=== PATIENT | male | born 1965 | race Caucasian/White ===

== ENCOUNTER 2017-10-18 15:45 | Emergency (ER) | payer BC ==
[2017-10-18 16:21] LABS: #Basophils 0.1 thou/uL (0.0-0.2); #Eosinphils 0.1 thou/uL (0.0-0.7); #Monocytes 0.8 thou/uL (0.11-0.59); #Neutrophils 3.5 thou/uL (1.40-6.50); %Basophils 1.8 % (0.0-1.0); %Eosinophils 2.1 % (0.0-10.0); %Lymphocytes 18.6 % (21.0-51.0); %Monocytes 13.7 % (0.0-10.0); %Neutrophils 63.9 % (42.0-75.0); Hemoglobin 9.5 g/dL (14.0-18.0); Mean Corpuscular HGB CONC 31.7 g/dL (32.0-36.0); Mean Corpuscular Hemoglobin 26.4 pg (27.0-31.0); Mean Corpuscular Volume 83.3 fl (80.0-94.0); Mean Platelet Volume 6.5 fL (7.4-10.4); Platelet Count 170 thou/uL (130-400); RBC Distribution Width 15.4 % (11.5-14.5); White Blood Cell (WBC) Count 5.5 thou/uL (4.8-10.8)
[2017-10-18 16:28] LABS: Bilirubin Negative (Negative); Blood, Urine Negative (Negative); Clarity Clear (Clear); Glucose, Urine (Dipstick) Negative (Negative); Leukocyte Negative (Negative); Nitrite Negative (Negative); Protein, Urine (Dipstick) Negative (Neg-Trace); Specific Gravity, Urine 1.006 (1.002-1.036); Urobilinogen 0.2 mg/dL (0.2-1.0)
[2017-10-18 16:35] LABS: ALT (SGPT) 35 U/L (8-55); AST (SGOT) 51 U/L (5-34); Albumin 3.5 g/dL (3.5-5.0); Alkaline Phosphatase 107 U/L (40-150); Anion Gap 13 mmol/L (10-20); BUN (Urea Nitrogen) 7 mg/dL (8.4-25.7); Bilirubin, Total 0.5 mg/dL (0.2-1.2); Calc. Creatinine Clearance 0 mL/min (70-130); Calcium 8.7 mg/dL (7.8-10.44); Carbon Dioxide 24 mmol/L (22-29); Chloride 100 mmol/L (98-107); Estimated GFR-MDRD 88; Globulin 3.3 g/dL (2.4-3.5); Glucose 107 mg/dL (70-105); Lipase 47 U/L (8-78); Potassium 4.2 mmol/L (3.5-5.1); Protein, Total 6.8 g/dL (6.0-8.3); Sodium 133 mmol/L (136-145)
[2017-10-18] MEDS ORDERED: Morphine 4 MG/ML Carpuject ONE (17:03)
--- NOTE | 2017-10-18 19:15 | CT ---
CT OF ABDOMEN AND PELVIS PERFORMED WITH INTRAVENOUS CONTRAST ENHANCEMENT 10/18/17 HISTORY: Fall with increasing right flank pain. Fall occurred Tuesday night. The lung bases are clear. There are diffuse fatty changes of the liver The spleen is within normal limits of size. Evidence of a gastric bypass is noted. The pancreas region is unremarkable. The gallbladder has been removed. Right and left adrenal glands and right and left kidneys are normal in size. No signs of obstruction. There is some minimal prominence to both ureters but this is probably on the basis of a slightly dis tended bladder. There is no free fluid. There is some small nonspecific periaortic and aortocaval nod es which are nonspecific. They are slightly numerous than typically seen and may be reactive. CT OF PELVIS PERFORMED WITH CONTRAST ENHANCEMENT: Prostate does not appear enlarged. I do not appreciate any significant pelvis lymphadenopathy or mass . The appendix is more retrocecal in location. It is normal in size. CT OF LUMBAR SPINE: Unremarkable. IMPRESSION: 1. Fatty changes of the liver. 2. Gastric bypass and postop cholecystectomy change. 3. No acute abnormalities of the abdomen or pelvis. POS: [facility]
== END 2017-10-18 17:16 | disposition home or self-care (01) ==
LOC: SCSER 15:45
DX: S30.1XXA Contusion of abdominal wall, initial encounter (principal); E78.5 Hyperlipidemia, unspecified; I10 Essential (primary) hypertension; Z87.442 Personal history of urinary calculi; Z79.899 Other long term (current) drug therapy; W19.XXXA Unspecified fall, initial encounter; Y92.002 Bathroom of unspecified non-institutional (private) residence as the place of occurrence of the external cause
CPT/HCPCS: 74177; 80053; 81003; 83690; 85025; 96374; J2270

== ENCOUNTER 2018-01-02 11:26 | Emergency (ER) | payer BC ==
--- NOTE | 2018-01-02 12:15 | CT ---
NONCONTRAST CT HEAD: Date: 01-02-18 History: Trauma. Patient fell last night at 1900 hours after becoming dizzy and falling backwards. Comparison: 01-28-12 FINDINGS: There is no evidence of a hemorrhage, acute infarction, mass effect, or midline shift. Low density fo cus in the left lentiform nucleus is seen and was also seen on the prior study which is likely relate d to remote lacunar infarction. There is cerebral and cerebellar volume loss similar to the prior exa m. Ventricular system is normal in size, shape, and position for the degree of focal atrophy. Mucosal thickening is scattered within the ethmoidal air cells including right sphenoid sinus. There is a de fect in the left medial orbital wall which is not seen on the prior study suggesting intervening post traumatic deformity. There is also irregularity at the inferior aspect of the left orbit, also probab ly related to prior orbital floor fracture. Mastoid air cells are clear. No acute calvarial fracture is visualized. No other interval change. IMPRESSION: 1. No acute intracranial abnormality is demonstrated. 2. Cerebral and cerebellar volume loss similar to prior exam. 3. Remote lacunar infarction left lentiform nucleus. 4. Sinus disease with findings likely related to remote injury involving the left medial orbital wall and orbital floor. POS: [facility]
--- NOTE | 2018-01-02 12:24 | RAD ---
FOUR VIEWS OF THE RIGHT KNEE: COMPARISON: None. HISTORY: Right knee pain with fall last night. FINDINGS: Four views of the right knee show no evidence of acute fracture or dislocation. No significant degen erative changes are seen. No knee effusion is seen. IMPRESSION: No evidence of acute osseous abnormality. POS: [facility]
--- NOTE | 2018-01-02 12:25 | RAD ---
SINGLE VIEW OF THE CHEST AND RIGHT RIB SERIES: HISTORY: Fall last night with right rib pain. FINDINGS: A single view of the chest and multiple views of the right ribs were performed. The cardiomediastina l silhouette is normal in size. The patient is status post sternotomy. There is no evidence of cons olidation, mass, pneumothorax, or pleural effusion. No displaced right rib fracture is appreciated. IMPRESSION: 1. No evidence of a displaced right rib fracture. 2. No evidence of acute cardiopulmonary disease. POS: [facility]
[2018-01-02 12:52] LABS: ALT (SGPT) 61 U/L (8-55); AST (SGOT) 81 U/L (5-34); Alkaline Phosphatase 102 U/L (40-150); Anion Gap 17 mmol/L (10-20); BUN (Urea Nitrogen) 6 mg/dL (8.4-25.7); Bilirubin, Total 0.6 mg/dL (0.2-1.2); CK (CPK) 211 U/L (30-200); CKMB 3.4 ng/mL (0-6.6); Calc. Creatinine Clearance 0 mL/min (70-130); Calcium 9.3 mg/dL (7.8-10.44); Carbon Dioxide 21 mmol/L (22-29); Chloride 102 mmol/L (98-107); Estimated GFR-MDRD Greater than 90; Globulin 3.6 g/dL (2.4-3.5); Glucose 95 mg/dL (70-105); Lipase 42 U/L (8-78); Potassium 4.4 mmol/L (3.5-5.1); Protein, Total 7.6 g/dL (6.0-8.3); Sodium 136 mmol/L (136-145); Troponin I Less than 0.010 ng/mL (< 0.028)
[2018-01-02 12:53] LABS: #Basophils 0.1 thou/uL (0.0-0.2); #Eosinphils 0.1 thou/uL (0.0-0.7); #Lymphocytes 0.8 thou/uL (1.20-3.40); #Monocytes 0.5 thou/uL (0.11-0.59); #Neutrophils 2.3 thou/uL (1.40-6.50); %Basophils 2.3 % (0.0-1.0); %Lymphocytes 21.5 % (21.0-51.0); %Monocytes 14.3 % (0.0-10.0); %Neutrophils 59.9 % (42.0-75.0); Acetaminophen Less than 6.0 mcg/mL (10.0-30.0); Alcohol 48 mg/dL (Less than 10); Anisocytosis SLIGHT = 6-15 cells (100X) (0-5/hpf); Hemoglobin 10.7 g/dL (14.0-18.0); Hypochromia SLIGHT = 6-15 cells (100X) (0-5/hpf); MDiff Complete? YES; Mean Corpuscular HGB CONC 31.4 g/dL (32.0-36.0); Mean Corpuscular Hemoglobin 21.7 pg (27.0-31.0); Mean Platelet Volume 6.9 fL (7.4-10.4); Microcytosis MODERATE=15-30 cells (100X) (0-5/hpf); Ovalocytes SLIGHT = 2-5 cells (100X) (0-1/hpf); PLT Morphology Comment Appears Adequate; Platelet Count 170 thou/uL (130-400); Polychromasia SLIGHT = 2-3 cells (100X) (0-2/hpf); RBC Distribution Width 17.5 % (11.5-14.5); Red Blood Cell (RBC) Count 4.94 mill/uL (4.70-6.10); Salicylate Less than 8.0 mg/dL (15.0-30.0); Target Cells SLIGHT = 2-5 cells (100X) (0-1/hpf); White Blood Cell (WBC) Count 3.8 thou/uL (4.8-10.8)
[2018-01-02 12:54] LABS: Bilirubin Negative (Negative); Blood, Urine Negative (Negative); Clarity Clear (Clear); Glucose, Urine (Dipstick) Negative (Negative); Leukocyte Negative (Negative); Nitrite Negative (Negative); Protein, Urine (Dipstick) Negative (Neg-Trace)
[2018-01-02 13:19] LABS: Amphetamine Not Detected (NotDetected); Barbiturates Screen Not Detected (NotDetected); Benzodiazepine Screen Not Detected (NotDetected); Cocaine Metabolite Screen Not Detected (NotDetected); Medtox Control Line Valid? VALID (VALID); Methadone Not Detected (NotDetected); Methamphetamine Not Detected (NotDetected); Opiate Screen Not Detected (NotDetected); Oxycodone Screen Not Detected (NotDetected); Phencyclidine (PCP) Not Detected (NotDetected); THC/Cannabinoid Screen Not Detected (NotDetected); Tricyclic Screen Not Detected (NotDetected)
== END 2018-01-02 13:37 | disposition home or self-care (01) ==
LOC: SCSER 11:26
DX: S20.211A Contusion of right front wall of thorax, initial encounter (principal); F10.10 Alcohol abuse, uncomplicated; E78.5 Hyperlipidemia, unspecified; I10 Essential (primary) hypertension; E11.9 Type 2 diabetes mellitus without complications; F31.9 Bipolar disorder, unspecified; Z79.02 Long term (current) use of antithrombotics/antiplatelets; Z79.82 Long term (current) use of aspirin; Z79.899 Other long term (current) drug therapy; W19.XXXA Unspecified fall, initial encounter
CPT/HCPCS: 36415; 70450; 80053; 80306; 80307; 81003; 82553; 83690; 84484; 85025; 93005

== ENCOUNTER 2018-03-24 08:01 | Outpatient (CLI) | payer BC ==
--- NOTE | 2018-03-24 09:40 | ULT ---
ULTRASOUND ABDOMEN LIMITED: (RIGHT UPPER QUADRANT) DATE 03/24/18. HISTORY: A 52-year-old male with elevated liver function tests. FINDINGS: Gallbladder: Surgically absent. Common duct: 5 mm. Liver: Diffusely increased echogenicity, but without significant signal dropout in the deep portions of the right lobe. Pancreas: Very poorly visualized due to a combination of shadowing from bowel gas and body habitus. Right kidney: No hydronephrosis. IMPRESSION: 1. Questionable hepatic steatosis. 2. Status post cholecystectomy. 3. Pancreas not visualized. JN R POS: [facility]
== END 2018-03-24 08:02 | disposition home or self-care (01) ==
LOC: SCSULT 08:01
PROVIDERS: ATTEND Family Medicine
DX: R74.0 Nonspecific elevation of levels of transaminase and lactic acid dehydrogenase [LDH] (principal); Z90.49 Acquired absence of other specified parts of digestive tract
CPT/HCPCS: 76705

== ENCOUNTER 2018-06-01 12:30 | Emergency (ER) | payer BC ==
--- NOTE | 2018-06-01 13:07 | RAD ---
LEFT ANKLE 3 VIEWS: Date: 06/01/18 HISTORY: Injury. COMPARISON: None. FINDINGS: Small eddie of bone along the dorsal aspect of the talar neck. There is also abnormal cortical step-o ff of the anterior margin of the tibial plafond. There is a moderate size plantar and small dorsal ca lcaneal spur. Evidence of old medial ligamentous injury. There is extensive soft tissue swelling. IMPRESSION: 1. Concern for possible capsular avulsion of the talar neck. 2. Concern for possible fracture of the anterior margin of the tibial plafond. 3. Extensive soft tissue swelling. POS: [facility]
--- NOTE | 2018-06-01 13:15 | RAD ---
LEFT FOOT 3 VIEWS: HISTORY: Injury. Twisted ankle last night. COMPARISON: None. FINDINGS: No acute displaced fracture or malalignment. Limited evaluation of the Lisfranc interval appears monet ntained. There is also a fracture of the anterior margin of the tibial plafond. Likely a dorsal avulsion frac ture of the talar neck and subcapsular injury. IMPRESSION: 1. Likely a capsular avulsion injury of the talar neck. 2. Although better seen on the ankle radiographs and not the foot radiographs, there was concern for a possible fracture of the anterior margin of the tibial plafond, although not well seen on this exa m. It could be a prominent osteophyte. POS: [facility]
== END 2018-06-01 13:25 | disposition home or self-care (01) ==
LOC: SCSER 12:30
DX: S82.892A Other fracture of left lower leg, initial encounter for closed fracture (principal); S92.902A Unspecified fracture of left foot, initial encounter for closed fracture; E78.5 Hyperlipidemia, unspecified; I10 Essential (primary) hypertension; Z79.899 Other long term (current) drug therapy; W01.0XXA Fall on same level from slipping, tripping and stumbling without subsequent striking against object, initial encounter

== ENCOUNTER 2018-10-28 08:46 | Outpatient (CLI) | payer BC ==
[2018-10-28 09:43] LABS: AST (SGOT) 62 U/L (5-34); Albumin 3.9 g/dL (3.5-5.0); Alkaline Phosphatase 88 U/L (40-150); Anion Gap 15 mmol/L (10-20); Bilirubin, Total 0.4 mg/dL (0.2-1.2); Calc. Creatinine Clearance 0 mL/min (70-130); Carbon Dioxide 25 mmol/L (22-29); Cardiac Risk 2.4 (Less than 4.5); Chloride 97 mmol/L (98-107); Cholesterol 179 mg/dl (< 200 Desired); Estimated GFR-MDRD Greater than 90; Globulin 3.4 g/dL (2.4-3.5); Glucose 103 mg/dL (70-105); HDL Cholesterol 74 mg/dL (>60 Neg Risk); LDL Cholesterol, Calculated 88 mg/dL; Potassium 4.1 mmol/L (3.5-5.1); Protein, Total 7.3 g/dL (6.0-8.3); Sodium 133 mmol/L (136-145); Triglycerides 83 mg/dL (Less than 150)
[2018-10-28 10:25] LABS: ALT (SGPT) 34 U/L (8-55); BUN (Urea Nitrogen) 7 mg/dL (8.4-25.7); Calcium 9.4 mg/dL (7.8-10.44)
== END 2018-10-28 08:47 | disposition home or self-care (01) ==
LOC: SCSLAB 08:46
PROVIDERS: ATTEND Family Medicine
DX: K75.81 Nonalcoholic steatohepatitis (NASH) (principal); E78.1 Pure hyperglyceridemia
CPT/HCPCS: 36415; 80053; 80061

== ENCOUNTER 2019-03-01 15:00 | Outpatient (CLI) | payer BC | END 2019-03-01 15:01 | disposition home or self-care (01) | LOC: SLEEPLAB 15:00 | PROVIDERS: ATTEND Family Medicine | DX: G47.33 Obstructive sleep apnea (adult) (pediatric) (principal); R53.83 Other fatigue; R06.83 Snoring; I10 Essential (primary) hypertension; I25.10 Atherosclerotic heart disease of native coronary artery without angina pectoris | CPT/HCPCS: 95806 ==

== ENCOUNTER 2019-03-13 15:56 | Outpatient (CLI) | payer BC | END 2019-03-13 15:57 | disposition home or self-care (01) | LOC: CTENTCT 15:56 | PROVIDERS: ATTEND Otolaryngology Plastic Surgery within the Head & Neck | DX: J01.81 Other acute recurrent sinusitis (principal) | CPT/HCPCS: 70486 ==

== ENCOUNTER 2019-05-02 20:30 | Outpatient (CLI) | payer BC | END 2019-05-02 20:31 | disposition home or self-care (01) | LOC: SLEEPLAB 20:30 | PROVIDERS: ATTEND Family Medicine | DX: G47.33 Obstructive sleep apnea (adult) (pediatric) (principal); R53.83 Other fatigue; I25.10 Atherosclerotic heart disease of native coronary artery without angina pectoris; I10 Essential (primary) hypertension | CPT/HCPCS: 95811 ==